=== PATIENT | male | born 1950 | race Caucasian/White ===

== ENCOUNTER 2022-01-16 10:50 | Outpatient (CLI) | payer MEDICARE, BC, SELFPAY ==
[2022-01-16 14:15] LABS: Chloride* 104 mmol/L (96-114); Potassium* 3.7 mmol/L (3.6-5.1); Sodium* 139 mmol/L (135-149)
[2022-01-16 14:18] LABS: Blood Urea Nitrogen* 18 mg/dL (7-30); Carbon Dioxide* 24 mmol/L (20-32); Cholesterol* 190 mg/dL (90-199); Creatinine* 1.4 mg/dL (0.5-1.5); Estimated Glomerular Filt Rate 53 ml/min; Glucose* 126 mg/dL (60-115); Triglycerides* 206 mg/dL (40-149)
[2022-01-16 14:19] LABS: Calcium* 9.8 mg/dL (8.4-10.6); HDL Cholesterol* 31 mg/dL (>=40); LDL Cholesterol Calculated 118 mg/dL (<100)
[2022-01-16 14:47] LABS: PSA Screen* 2.38 ng/mL (0.10-4.00)
[2022-01-17 10:20] LABS: Basophils Absolute Auto 0.05 K/uL (0.00-0.30); Basophils Percent Auto 0.9 % (0.0-3.0); Eosinophils Absolute Auto 0.08 K/uL (0.00-0.50); Eosinophils Percent Auto 1.5 % (0.0-7.0); Hemoglobin* 16.7 gm/dL (13.5-17.5); Immature Granulocytes Abs Auto 0.01 K/uL (0.00-0.30); Lymphocytes Absolute Auto 1.26 K/uL (0.90-2.90); Lymphocytes Percent Auto 23.9 % (20-44); Mean Corpuscular HGB Conc 34 gm/dL (32-36); Mean Corpuscular Hemoglobin 31 pg (26-34); Mean Corpuscular Volume 91 fL (80-100); Monocytes Percent Auto 9.1 % (0.0-11.0); Neutrophils Absolute Auto 3.39 K/uL (1.7-7.0); Neutrophils Percent Auto 64.4 % (42.0-72.0); Platelet Count* 107 K/uL (140-440); RDW Coefficient of Variation % 12.7 % (11.5-15.5); Red Blood Count 5.36 m/uL (4.30-5.90); White Blood Count* 5.27 K/uL (4.50-11.00)
[2022-01-17 10:26] LABS: Slide Review Reflex No
== END 2022-01-16 10:51 | disposition home or self-care (01) ==
PROVIDERS: PCP Family Medicine; Visit Provider Family Medicine
DX: E78.5 Hyperlipidemia, unspecified (principal); M79.673 Pain in unspecified foot; Z12.5 Encounter for screening for malignant neoplasm of prostate; I10 Essential (primary) hypertension; L03.90 Cellulitis, unspecified; B35.3 Tinea pedis; I48.91 Unspecified atrial fibrillation; Z79.01 Long term (current) use of anticoagulants; M79.672 Pain in left foot; M79.671 Pain in right foot; J44.9 Chronic obstructive pulmonary disease, unspecified; G47.33 Obstructive sleep apnea (adult) (pediatric); I87.8 Other specified disorders of veins
CPT/HCPCS: 80048; 80061; 84153; 85025

== ENCOUNTER 2022-12-24 13:14 | Outpatient (CLI) | payer MEDICARE, BC, SELFPAY | END 2022-12-24 13:15 | disposition home or self-care (01) | PROVIDERS: PCP Family Medicine; Visit Provider Family Medicine | DX: R60.9 Edema, unspecified (principal); E78.5 Hyperlipidemia, unspecified; I10 Essential (primary) hypertension; I83.93 Asymptomatic varicose veins of bilateral lower extremities; Z79.01 Long term (current) use of anticoagulants | CPT/HCPCS: 80048; 85025; 85379 ==

== ENCOUNTER 2023-01-15 13:38 | Outpatient (CLI) | payer MEDICARE, BC, SELFPAY ==
--- NOTE | 2023-01-15 14:00 | CRLHL7_ITS ---
For Patients: As a result of the 21st Century Cures Act, medical imaging exams and procedure reports are released immediately into your electronic medical record. You may view this report before your referring provider. If you have questions, please contact your health care provider. CLINICAL HISTORY: Bilateral lower extremity swelling, varicose veins. COMPARISON: None. TECHNIQUE: The lower extremity veins were examined with wills-scale ultrasound, color-flow and Doppler spectral analysis. Compressibility of the veins by transducer pressure was used to evaluate the presence or absence of DVT/SVT at sites per exam specific protocol. Assessment of venous competence was performed by Doppler spectral analysis and was performed and documented at exam specific sites in an upright position for venous insufficiency studies. FINDINGS: RIGHT LOWER EXTREMITY: CFV: 0.9, competent. SFV prox: 1.7, incompetent. SFV mid: 1.7, incompetent. SFV dist: 1.6, incompetent. POP: 2.1, incompetent. PTV1: Competent. PTV2: Competent. SFJ: 2.9, incompetent, 16 mm. GSV thigh prox: 2.0, incompetent, 16 mm. GSV thigh mid: 1.4, incompetent. GSV calf prox: Competent. GSV calf mid: Competent. GSV calf dist: N/V. LSV mid: Competent. LEFT LOWER EXTREMITY: CFV: 1.4, incompetent. SFV prox: 0.9, competent. SFV mid: 1.3, incompetent. SFV dist: 1.0, incompetent. POP: 1.1, incompetent. PTV1: 5.0, incompetent. PTV2: 0.9, incompetent. SFV: 2.2, incompetent, 13 mm. GSV thigh prox: 2.2, incompetent, 7 mm. GSV thigh mid: Competent. GSV calf prox: Competent. GSV calf mid: Competent. LSV mid: Competent. Broadcast Producer: Left calf distal GSV, 2 mm, competent. There is no evidence of DVT in the bilateral lower extremities. The deep venous systems are compressible with augmentation of flow post compression. Phasic flow is identified. Deep venous incompetence is seen within the right femoral and popliteal veins as well as the left common femoral, femoral, popliteal, and posterior tibial veins. Right lower extremity: Greater saphenous vein incompetence is noted from the saphenofemoral junction to the mid thigh. Left lower extremity: Greater saphenous vein incompetence is noted at the saphenofemoral junction and proximal thigh. IMPRESSION: 1. No evidence of DVT in the bilateral lower extremities. Deep venous incompetence in the left common femoral vein, bilateral femoral and popliteal veins, as well as the left posterior tibial veins. 1. Right lower extremity: Greater saphenous vein incompetence at the saphenofemoral junction to the mid thigh. 2. Left lower extremity: Greater saphenous vein incompetence at the saphenofemoral junction and proximal thigh. Dictated by Javier Mccallum MD @ 01/16/2023 3:07:02 PM (Electronically Signed)
== END 2023-01-15 13:39 | disposition home or self-care (01) ==
LOC: US 13:39
PROVIDERS: PCP Family Medicine; Visit Provider Family Medicine
DX: M79.89 Other specified soft tissue disorders (principal); I83.93 Asymptomatic varicose veins of bilateral lower extremities
CPT/HCPCS: 93970

== ENCOUNTER 2023-02-04 10:15 | Outpatient (CLI) | payer MEDICARE, BC, SELFPAY | END 2023-02-04 10:16 | disposition home or self-care (01) | LOC: NFLDREF 02-06 01:04 | PROVIDERS: PCP Family Medicine; Referring Provider Family Medicine; Visit Provider Family Medicine | DX: I48.91 Unspecified atrial fibrillation (principal); Z51.81 Encounter for therapeutic drug level monitoring; Z79.01 Long term (current) use of anticoagulants | CPT/HCPCS: 84132 ==

== ENCOUNTER 2023-02-21 09:40 | Outpatient (CLI) | payer MEDICARE, BC, SELFPAY | END 2023-02-21 09:41 | disposition home or self-care (01) | LOC: NFLDREF 02-25 10:56 | PROVIDERS: PCP Family Medicine; Referring Provider Family Medicine; Visit Provider Family Medicine | DX: E78.5 Hyperlipidemia, unspecified (principal); I10 Essential (primary) hypertension; K21.9 Gastro-esophageal reflux disease without esophagitis; R35.0 Frequency of micturition; Z12.5 Encounter for screening for malignant neoplasm of prostate | CPT/HCPCS: 80061; 84153; 84460 ==

== ENCOUNTER 2023-04-04 13:34 | Outpatient (CLI) | payer MEDICARE, BC, SELFPAY | END 2023-04-04 13:35 | disposition home or self-care (01) | LOC: RAD 13:35 | PROVIDERS: PCP Family Medicine; Visit Provider Family Medicine | DX: I48.91 Unspecified atrial fibrillation (principal); I51.7 Cardiomegaly; I10 Essential (primary) hypertension | CPT/HCPCS: 93306 ==

== ENCOUNTER 2023-08-01 09:36 | Outpatient (CLI) | payer MEDICARE, BC, SELFPAY | END 2023-08-01 09:37 | disposition home or self-care (01) | PROVIDERS: PCP Family Medicine; Visit Provider Family Medicine | DX: E78.5 Hyperlipidemia, unspecified (principal); I10 Essential (primary) hypertension | CPT/HCPCS: 80048; 84460; 85025 ==

== ENCOUNTER 2023-10-22 11:28 | Outpatient (CLI) | payer MEDICARE, BC, SELFPAY | END 2023-10-22 11:29 | disposition home or self-care (01) | LOC: NFLDREF 11:29 | PROVIDERS: PCP Family Medicine; Visit Provider Family Medicine | DX: I48.91 Unspecified atrial fibrillation (principal) | CPT/HCPCS: 85610 ==

== ENCOUNTER 2024-01-28 11:23 | Outpatient (CLI) | payer MEDICARE, BC, SELFPAY | END 2024-01-28 11:24 | disposition home or self-care (01) | PROVIDERS: PCP Family Medicine; Visit Provider Family Medicine | DX: E78.2 Mixed hyperlipidemia (principal); I10 Essential (primary) hypertension; I48.91 Unspecified atrial fibrillation; Z79.01 Long term (current) use of anticoagulants | CPT/HCPCS: 80048; 80061; 85610 ==

== ENCOUNTER 2024-09-04 10:48 | Outpatient (CLI) | payer MEDICARE, BC, SELFPAY | END 2024-09-04 10:49 | disposition home or self-care (01) | PROVIDERS: PCP Family Medicine; Visit Provider Family Medicine | DX: Z12.5 Encounter for screening for malignant neoplasm of prostate (principal); E78.2 Mixed hyperlipidemia; I10 Essential (primary) hypertension | CPT/HCPCS: 80048; 80061; 84460; G0103 ==

== ENCOUNTER 2024-10-08 10:37 | Outpatient (CLI) | payer MEDICARE, BC, SELFPAY ==
--- NOTE | 2024-10-08 13:12 | P.ANES_ITS ---
Anesthesia Charges Start Date/Time Anesthesia Start Date: 10/08/24 Anesthesia Start Time: 12:10 Stop Date/Time Anesthesia Stop Date: 10/08/24 Anesthesia Stop Time: 13:08 Summary Extremes of Age - Over 70 or under 1: DISTRIBUTOR ADVERTISING MATERIAL Coding CPT Codes CPT Codes: ANES LWR INTST NDSC NOS - 52700 ([id number]) P3 - PATIENT W/SEVERE SYS DISEASE, QK - FLAT BED KNITTER 2-4 CNCRNT ANES PROC, QX - DISTRIBUTOR ADVERTISING MATERIAL SVC W/ MD MED DIRECTION Additional Codes: Summary - Extremes of Age - Over 70 or under 1: DISTRIBUTOR ADVERTISING MATERIAL ([id number])
--- NOTE | 2024-10-08 13:12 | W.ANESCHARGE ---
Anesthesia Charges Start Date/Time Anesthesia Start Date: 10/08/24 Anesthesia Start Time: 12:10 Stop Date/Time Anesthesia Stop Date: 10/08/24 Anesthesia Stop Time: 13:08 Summary Extremes of Age - Over 70 or under 1: FARM HAND Coding CPT Codes CPT Codes: ANES LWR INTST NDSC NOS - 76371 ([id number]) P3 - PATIENT W/SEVERE SYS DISEASE, QK - SUPERVISOR TRAIN OPERATIONS 2-4 CNCRNT ANES PROC, QX - FARM HAND SVC W/ MD MED DIRECTION Additional Codes: Summary - Extremes of Age - Over 70 or under 1: FARM HAND ([id number])
--- NOTE | 2024-10-08 13:26 | P.ANES_ITS ---
Anesthesia Charges Start Date/Time Anesthesia Start Date: 10/08/24 Anesthesia Start Time: 12:10 Stop Date/Time Anesthesia Stop Date: 10/08/24 Anesthesia Stop Time: 13:08 Summary Extremes of Age - Over 70 or under 1: MDA Coding CPT Codes CPT Codes: ANES LWR INTST NDSC NOS - 77315 ([id number]) P3 - PATIENT W/SEVERE SYS DISEASE, QK - CUSTODIAL MANAGER 2-4 CNCRNT ANES PROC, QX - CHECK GRADER SVC W/ MD MED DIRECTION Additional Codes: Summary - Extremes of Age - Over 70 or under 1: MDA ([id number])
--- NOTE | 2024-10-08 13:26 | W.ANESCHARGE ---
Anesthesia Charges Start Date/Time Anesthesia Start Date: 10/08/24 Anesthesia Start Time: 12:10 Stop Date/Time Anesthesia Stop Date: 10/08/24 Anesthesia Stop Time: 13:08 Summary Extremes of Age - Over 70 or under 1: MDA Coding CPT Codes CPT Codes: ANES LWR INTST NDSC NOS - 88398 ([id number]) P3 - PATIENT W/SEVERE SYS DISEASE, QK - FILENET DEVELOPER 2-4 CNCRNT ANES PROC, QX - AMORTIZATION SCHEDULE CLERK SVC W/ MD MED DIRECTION Additional Codes: Summary - Extremes of Age - Over 70 or under 1: MDA ([id number])
== END 2024-10-08 10:38 | disposition home or self-care (01) ==
LOC: OP CLINIC 10:38
PROVIDERS: PCP Family Medicine; Visit Provider Surgery
DX: Z12.11 Encounter for screening for malignant neoplasm of colon (principal); Z80.0 Family history of malignant neoplasm of digestive organs; Z86.0109 Personal history of other colon polyps; D12.3 Benign neoplasm of transverse colon; D12.2 Benign neoplasm of ascending colon; D12.0 Benign neoplasm of cecum; D12.4 Benign neoplasm of descending colon; D12.8 Benign neoplasm of rectum; K64.8 Other hemorrhoids; D17.5 Benign lipomatous neoplasm of intra-abdominal organs
CPT/HCPCS: 00811; 45380; 45385; 88305; 99100; J2704

== ENCOUNTER 2024-12-25 10:26 | Outpatient (CLI) | payer MEDICARE, BC, SELFPAY ==
--- NOTE | 2024-12-25 10:45 | CRLHL7_ITS ---
For Patients: As a result of the Century Cures Act, medical imaging exams and procedure reports are released immediately into your electronic medical record. You may view this report before your referring provider. If you have questions, please contact your health care provider. INDICATION: Enlarged testicles/scrotum COMPARISON: none TECHNIQUE: Saldana scale imaging was performed of the scrotum. In addition color Doppler and spectral Doppler analysis was performed of the testes. FINDINGS: The testes demonstrate normal arterial and venous blood flow on color Doppler and spectral Doppler analysis. The testes have uniform echogenicity with no evidence of a suspicious mass or area of inflammation. The right testis measures 6.4 x 2.9 x 3.0 cm in size and the left testis measures 4.9 x 2.9 x 4.1 cm. Left varicocele. Large right hydrocele measuring approximately 10 cm. Small epididymal cysts incidentally noted. IMPRESSION: Large right hydrocele. Left varicocele. Dictated by Josué Garcia MD @ 12/27/2024 9:22:56 PM (Electronically Signed)
== END 2024-12-25 10:27 | disposition home or self-care (01) ==
LOC: US 10:27
PROVIDERS: PCP Family Medicine; Visit Provider Family Medicine
DX: N50.89 Other specified disorders of the male genital organs (principal); N43.3 Hydrocele, unspecified; I86.1 Scrotal varices
CPT/HCPCS: 76870; 93976

== ENCOUNTER 2025-01-18 15:26 | Outpatient (CLI) | payer MEDICARE, BC, SELFPAY | END 2025-01-18 15:27 | disposition home or self-care (01) | PROVIDERS: PCP Family Medicine; Visit Provider Family Medicine | DX: E78.2 Mixed hyperlipidemia (principal); I10 Essential (primary) hypertension; I48.91 Unspecified atrial fibrillation; K92.1 Melena; Z79.01 Long term (current) use of anticoagulants | CPT/HCPCS: 80048; 82550; 83735; 85025; 85610 ==

== ENCOUNTER 2025-01-22 12:25 | Outpatient (CLI) | payer MEDICARE, BC, SELFPAY | END 2025-01-22 12:26 | disposition home or self-care (01) | PROVIDERS: PCP Family Medicine; Visit Provider Family Medicine | DX: E83.42 Hypomagnesemia (principal); D50.0 Iron deficiency anemia secondary to blood loss (chronic); E87.6 Hypokalemia | CPT/HCPCS: 80048; 83735; 85025 ==

== ENCOUNTER 2025-01-27 10:30 | Outpatient (CLI) | payer MEDICARE, BC, SELFPAY | END 2025-01-27 10:31 | disposition home or self-care (01) | LOC: NFLDREF 02-01 21:06 | PROVIDERS: PCP Family Medicine; Referring Provider Family Medicine; Visit Provider Family Medicine | DX: I10 Essential (primary) hypertension (principal); I48.91 Unspecified atrial fibrillation | CPT/HCPCS: 80048; 85018 ==

== ENCOUNTER 2025-02-02 15:31 | Outpatient (CLI) | payer MEDICARE, BC, SELFPAY | END 2025-02-02 15:32 | disposition home or self-care (01) | PROVIDERS: PCP Family Medicine; Visit Provider Family Medicine | DX: M25.572 Pain in left ankle and joints of left foot (principal); E83.42 Hypomagnesemia; D50.0 Iron deficiency anemia secondary to blood loss (chronic) | CPT/HCPCS: 80048; 83735; 84550; 85018; 86140 ==

== ENCOUNTER 2025-03-15 11:49 | Outpatient (CLI) | payer MEDICARE, BC, SELFPAY | END 2025-03-15 11:50 | disposition home or self-care (01) | PROVIDERS: PCP Family Medicine; Visit Provider Family Medicine | DX: R63.4 Abnormal weight loss (principal); Z68.37 Body mass index [BMI] 37.0-37.9, adult | CPT/HCPCS: 80053; 83735; 85025; 85610; 85651 ==

== ENCOUNTER 2025-03-24 10:25 | Outpatient (CLI) | payer MEDICARE, BC, SELFPAY ==
--- NOTE | 2025-03-24 11:00 | CRLHL7_ITS ---
For Patients: As a result of the 21st Century Cures Act, medical imaging exams and procedure reports are released immediately into your electronic medical record. You may view this report before your referring provider. If you have questions, please contact your health care provider. Indication: ABNORMAL WT LOSS. 50# IN 3-4 MONTHS Technique: CT Chest/Abd/Pelvis 129CC ISOVUE 370 intravenous contrast AND WATER PREP Please note that all CT scans at this facility use dose modulation, iterative reconstruction, and/or weight-based dosing when appropriate to reduce radiation dose to as low as reasonably achievable. Comparison: None Findings: In the chest, the visualized thyroid is unremarkable. Atherosclerotic changes. Normal axillary lymph nodes. No pleural or pericardial effusion. Mildly prominent mediastinal lymph nodes measure up to 1.4 cm. Mildly prominent right hilar lymph node measures 1.4 cm. Paraseptal and centrilobular emphysema. Bilateral dependent scarring/mild fibrosis. No acute pulmonary edema. No dense infiltrate. Nodule within the right upper lobe measures 5 millimeters, 3/. Calcified nodule in the right upper lobe measures 2 millimeters, 08/15. Additional calcified nodule within the right upper lobe measures 2 millimeters, /. Tiny calcified granuloma also within the superior segment of the left lower lobe, 3/. Other tiny calcified granulomas are present elsewhere within the right lower lobe. Bridging osteophyte formation. No fracture. In the abdomen, fatty infiltration of the liver is present. The liver is enlarged and measures 23 cm. The spleen is also enlarged measures 18.3 cm. There is a low-density lesion in the spleen which measures 1.7 cm. Enhancing lesion within the spleen is also noted which measures 1.3 cm. Pancreas is normal. Calcified stones in the gallbladder measure up to 1.4 cm. Adrenal glands are normal. No hydronephrosis. Atherosclerotic changes. No aneurysm. Diffuse gastric wall thickening is present measuring up to 3.0 cm. No gastric outlet obstruction. Retroperitoneal adenopathy is present with lymph nodes measuring up to 1.5 cm. In the pelvis, the bladder is incompletely distended. Prostate calcifications are noted. Incidental hyperdensity within the rectum. No colonic or small bowel obstruction. Bilateral inguinal adenopathy measures up to 2 cm. Right hydrocele is present measuring 10.7 cm. Pelvic sidewall lymph nodes are mildly prominent measuring up to 1.4 cm. Right hip replacement hardware. Multiple heterotopic foci adjacent to the right hip. Discogenic spurring. No fracture. Impression: Mediastinal, retroperitoneal and bilateral inguinal adenopathy. Hepatosplenomegaly with a hypodense and hyperdense splenic lesion. Diffuse gastric wall thickening. Constellation of findings are concerning for lymphoma. Recommend EGD for gastric biopsy. Cholelithiasis. Noncalcified 5 millimeter pulmonary nodule. Please note that all CT scans at this facility use dose modulation, iterative reconstruction, and/or weight-based dosing when appropriate to reduce radiation dose to as low as reasonably achievable. Dictated by Josué Garcia MD @ 03/24/2025 1:21:39 PM (Electronically Signed)
== END 2025-03-24 10:26 | disposition home or self-care (01) ==
LOC: CT 10:27
PROVIDERS: PCP Family Medicine; Visit Provider Family Medicine
DX: R63.4 Abnormal weight loss (principal); R16.2 Hepatomegaly with splenomegaly, not elsewhere classified; K80.20 Calculus of gallbladder without cholecystitis without obstruction; R91.8 Other nonspecific abnormal finding of lung field; R59.0 Localized enlarged lymph nodes
CPT/HCPCS: 71260; 74177; Q9967

== ENCOUNTER 2025-04-05 13:08 | Outpatient (CLI) | payer MEDICARE, BC, SELFPAY ==
--- NOTE | 2025-04-05 13:42 | P.ANES_ITS ---
Anesthesia Charges Start Date/Time Anesthesia Start Date: 04/05/25 Anesthesia Start Time: 13:40 Stop Date/Time Anesthesia Stop Date: 04/05/25 Anesthesia Stop Time: 14:02 Summary Extremes of Age - Over 70 or under 1: MDA Coding CPT Codes CPT Codes: ANES UPR GI NDSC PX NOS - [id number] ([id number]) P3 - PATIENT W/SEVERE SYS DISEASE, QK - PROJECT ACCOUNT MANAGER 2-4 CNCRNT ANES PROC, QX - FIBERGLASS SKI MAKER SVC W/ MD MED DIRECTION Additional Codes: Summary - Extremes of Age - Over 70 or under 1: MDA ([id number])
--- NOTE | 2025-04-05 13:42 | W.ANESCHARGE ---
Anesthesia Charges Start Date/Time Anesthesia Start Date: 04/05/25 Anesthesia Start Time: 13:40 Stop Date/Time Anesthesia Stop Date: 04/05/25 Anesthesia Stop Time: 14:02 Summary Extremes of Age - Over 70 or under 1: MDA Coding CPT Codes CPT Codes: ANES UPR GI NDSC PX NOS - 72174 ([id number]) P3 - PATIENT W/SEVERE SYS DISEASE, QK - VB DEVELOPER 2-4 CNCRNT ANES PROC, QX - SIGNALS ANALYST SVC W/ MD MED DIRECTION Additional Codes: Summary - Extremes of Age - Over 70 or under 1: MDA ([id number])
--- NOTE | 2025-04-05 14:06 | P.ANES_ITS ---
Anesthesia Charges Start Date/Time Anesthesia Start Date: 04/05/25 Anesthesia Start Time: 13:40 Stop Date/Time Anesthesia Stop Date: 04/05/25 Anesthesia Stop Time: 14:02 Summary Extremes of Age - Over 70 or under 1: SHOP HAND Coding CPT Codes CPT Codes: ANES UPR GI NDSC PX NOS - 07544 ([id number]) P3 - PATIENT W/SEVERE SYS DISEASE, QK - PROCESS SAFETY ENGINEERING TECHNOLOGIST 2-4 CNCRNT ANES PROC, QX - SHOP HAND SVC W/ MD MED DIRECTION Additional Codes: Summary - Extremes of Age - Over 70 or under 1: SHOP HAND ([id number])
--- NOTE | 2025-04-05 14:06 | W.ANESCHARGE ---
Anesthesia Charges Start Date/Time Anesthesia Start Date: 04/05/25 Anesthesia Start Time: 13:40 Stop Date/Time Anesthesia Stop Date: 04/05/25 Anesthesia Stop Time: 14:02 Summary Extremes of Age - Over 70 or under 1: CANNON PINION ADJUSTER Coding CPT Codes CPT Codes: ANES UPR GI NDSC PX NOS - 98668 ([id number]) P3 - PATIENT W/SEVERE SYS DISEASE, QK - NAPPER GRINDER 2-4 CNCRNT ANES PROC, QX - CANNON PINION ADJUSTER SVC W/ MD MED DIRECTION Additional Codes: Summary - Extremes of Age - Over 70 or under 1: CANNON PINION ADJUSTER ([id number])
== END 2025-04-05 13:09 | disposition home or self-care (01) ==
LOC: OP CLINIC 13:08
PROVIDERS: PCP Family Medicine; Visit Provider Internal Medicine
DX: K92.2 Gastrointestinal hemorrhage, unspecified (principal); K31.819 Angiodysplasia of stomach and duodenum without bleeding
CPT/HCPCS: 00731; 43239; 99100; J2704; J3490

== ENCOUNTER 2025-04-26 11:01 | Outpatient (CLI) | payer MEDICARE, BC, SELFPAY | END 2025-04-26 11:02 | disposition home or self-care (01) | LOC: US 11:03 | PROVIDERS: PCP Family Medicine; Visit Provider Family Medicine | DX: R59.0 Localized enlarged lymph nodes (principal) | CPT/HCPCS: 38505; 76942; 88305; 88341; 88342; 88360; A4649 ==

== ENCOUNTER 2025-05-10 14:57 | Outpatient (CLI) | payer MEDICARE, BC, SELFPAY | END 2025-05-10 14:58 | disposition home or self-care (01) | PROVIDERS: PCP Family Medicine; Visit Provider Family Medicine | DX: I10 Essential (primary) hypertension (principal); M10.9 Gout, unspecified; R63.4 Abnormal weight loss; Z68.34 Body mass index [BMI] 34.0-34.9, adult | CPT/HCPCS: 80048; 83735; 84550; 85025; 85610; 86140; 87086 ==